=== PATIENT | female | born 1980 | race Caucasian/White ===

== ENCOUNTER → 2017-05-28 | Outpatient (CLI) | payer MEDICAID ==
[2017-05-28 13:51] LABS: BASO % 0.3 % (0.0-1.0); EOS # 0.1 10^3/uL (0.0-0.50); HEMATOCRIT 32.2 % (36.0-47.0); IMMATURE GRANULOCYTE # 0.2 10^3/uL (0-0); IMMATURE GRANULOCYTE % 1.7 % (0-3.0); LYMPH # 1.9 10^3/uL (1.5-4.5); LYMPH % 14.5 % (24.0-44.0); MEAN CORPUSCULAR HEMOGLOBIN 29.7 pg (27.0-33.0); MEAN CORPUSCULAR HGB CONC 34.2 g/dl (32.0-36.5); MONO # 0.5 10^3/uL (0.0-0.8); MONO % 3.9 % (0.0-5.0); NEUTROPHILS # 10.2 10^3/uL (1.8-7.7); NEUTROPHILS % 78.6 % (36.0-66.0); PLATELET COUNT, AUTOMATED 290 10^3/uL (150-450); RED CELL DISTRIBUTION WIDTH 13.3 % (11.5-14.5); WHITE BLOOD COUNT 12.9 10^3/uL (4.0-10.0)
[2017-05-28 14:30] LABS: AMORPHOUS SEDIMENT SMALL (NEGATIVE); APPEARANCE, URINE HAZY (CLEAR); BACTERIA, URINE AUTO 2+ (NEGATIVE); BILIRUBIN, URINE AUTO NEGATIVE (NEGATIVE); BLOOD, URINE BLOOD NEGATIVE (NEGATIVE); COLOR, URINE AMBER (YELLOW); GLUCOSE, URINE (UA) AUTO NEGATIVE (NEGATIVE); KETONE, URINE AUTO TRACE mg/dL (NEGATIVE); LEUKOCYTE ESTERASE, URINE AUTO TRACE (NEGATIVE); MUCUS, URINE SMALL (NEGATIVE); NITRITE, URINE AUTO POSITIVE (NEGATIVE); PROTEIN, URINE AUTO NEGATIVE (NEGATIVE); RBC, URINE AUTO 1 /HPF (0-3); SPECIFIC GRAVITY URINE AUTO 1.019 (1.002-1.035); SQUAMOUS EPITHELIAL CELL UR AU 1 /HPF (0-6); UROBILINOGEN, URINE AUTO 0.2 mg/dL (0.0-2.0); WBC, URINE AUTO 12 /HPF (0-3)
[2017-05-28 14:36] LABS: RUBELLA IgG QUALITATIVE IMMUNE (IMMUNE)
[2017-05-28 14:37] LABS: HEPATITIS B SURFACE ANTIGEN NEGATIVE (NEGATIVE)
[2017-05-28 15:05] LABS: HIV 1&2 SCREEN CENTAUR NEGATIVE (NEGATIVE)
== END ==
LOC: M RAD 13:25
DX: O09.522 Supervision of elderly multigravida, second trimester (principal)
CPT/HCPCS: 76811

== ENCOUNTER 2017-08-24 11:48 | Inpatient (IN) | payer MEDICAID ==
[2017-08-24] MEDS: CLINDAMYCIN 900 MG in APPROPRIATE DILUENT 1 EA IV ×2 (13:43→21:43)
[2017-08-24] MEDS: AZITHROMYCIN 250 MG TAB PO (13:44)
[2017-08-24] MEDS: BETAMETHASONE SOLUSPAN 6MG/ML INJ 5ML (J0702) IM (13:44)
[2017-08-24 13:53] LABS: HEMATOCRIT 34.9 % (36.0-47.0); MEAN CORPUSCULAR HEMOGLOBIN 28.3 pg (27.0-33.0); MEAN CORPUSCULAR HGB CONC 34.4 g/dl (32.0-36.5); MEAN CORPUSCULAR VOLUME 82.3 fl (80.0-96.0); PLATELET COUNT, AUTOMATED 278 10^3/uL (150-450); RED BLOOD COUNT 4.24 10^6/uL (4.00-5.40); RED CELL DISTRIBUTION WIDTH 14.1 % (11.5-14.5); WHITE BLOOD COUNT 14.2 10^3/uL (4.0-10.0)
[2017-08-24] MEDS: GENTAMICIN 500 MG in D5W 100 ML IV (14:53)
[2017-08-24 17:32] LABS: APPEARANCE, URINE CLEAR (CLEAR); BACTERIA, URINE AUTO 1+ (NEGATIVE); BILIRUBIN, URINE AUTO NEGATIVE (NEGATIVE); BLOOD, URINE BLOOD NEGATIVE (NEGATIVE); COLOR, URINE YELLOW (YELLOW); GLUCOSE, URINE (UA) AUTO NEGATIVE (NEGATIVE); KETONE, URINE AUTO NEGATIVE (NEGATIVE); LEUKOCYTE ESTERASE, URINE AUTO NEGATIVE (NEGATIVE); MUCUS, URINE SMALL (NEGATIVE); NITRITE, URINE AUTO NEGATIVE (NEGATIVE); PROTEIN, URINE AUTO 1+ mg/dL (NEGATIVE); RBC, URINE AUTO 0 /HPF (0-3); SQUAMOUS EPITHELIAL CELL UR AU 2 /HPF (0-6); UROBILINOGEN, URINE AUTO 0.2 mg/dL (0.0-2.0); WBC, URINE AUTO 5 /HPF (0-3)
[2017-08-24 17:43] LABS: AMPHETAMINES URINE REFLEX NEGATIVE (NEGATIVE); BARBITURATES URINE REFLEX NEGATIVE (NEGATIVE); BENZODIAZEPINES URINE REFLEX NEGATIVE (NEGATIVE); CANNABINOIDS URINE REFLEX NEGATIVE (NEGATIVE); COCAINE METABOLITE URINE REFLE NEGATIVE (NEGATIVE); METHADONE URINE REFLEX NEGATIVE (NEGATIVE); OPIATES URINE REFLEX NEGATIVE (NEGATIVE); PHENCYCLIDINE URINE REFLEX NEGATIVE (NEGATIVE)
[2017-08-25] MEDS: CLINDAMYCIN 900 MG in APPROPRIATE DILUENT 1 EA IV (05:44)
[2017-08-25] MEDS: BETAMETHASONE SOLUSPAN 6MG/ML INJ 5ML (J0702) IM (11:51)
[2017-08-25] MEDS: AZTREONAM 2 GM in D5W MINI-BAG PLUS 50 ML IV (12:16)
[2017-08-25] MEDS: LACTATED RINGER'S 1000 ML IV (12:17)
[2017-08-25] MEDS: BICITRA 30ML SOLN UDC PO (12:17)
[2017-08-25] MEDS: LR 1,000 ML IV ×4 (12:22→22:14)
[2017-08-25] MEDS ORDERED: ONDANSETRON 4MG/2ML VIAL (J2405) As Ordered (12:23)
[2017-08-25] MEDS ORDERED: OXYTOCIN INJ 10 UNITS/ML VIAL (J2590) As Ordered (12:23)
[2017-08-25] MEDS ORDERED: MORPHINE PRES-FREE INJ 10 MG/10 ML VIAL (J2274) As Ordered (12:23)
[2017-08-25] MEDS ORDERED: KETOROLAC 60 MG/2 ML VIAL (J1885) As Ordered (12:23)
[2017-08-25] MEDS ORDERED: METOCLOPRAMIDE INJ 10MG/2ML VIAL (J2765) IV ×2 (12:41→14:15)
[2017-08-25] MEDS ORDERED: NALOXONE INJ 0.4 MG/1 ML VIAL (J2310) IV ×2 (12:41)
[2017-08-25] MEDS ORDERED: ONDANSETRON 4MG/2ML VIAL (J2405) IV ×3 (12:41→14:15)
[2017-08-25] MEDS ORDERED: PHENYLephrine HCL 500 MCG/5 ML (100MCG/ML) SYRINGE (J2370) As Ordered (12:44)
[2017-08-25] MEDS ORDERED: ePHEDrine SULFATE 25 MG/5 ML(5MG/ML) SYRINGE As Ordered (12:44)
[2017-08-25 13:20] LABS: CORD GAS ABE A -5.4; CORD GAS HCO3 A 19.5 MEQ/L; CORD GAS O2 SAT A 65.9 %; CORD GAS PCO2 A 36.3 mmHg; CORD GAS PH A 7.347 UNITS; CORD GAS PO2 A 27.5 mmHg; CORD GAS SBC A 19.3 MEQ/L; CORD GAS TCO2 A 20.6 MEQ/L
[2017-08-25 13:21] LABS: CORD GAS ABE V -3.3; CORD GAS HCO3 V 23.8 MEQ/L; CORD GAS O2 SAT V 40.3 %; CORD GAS PCO2 V 50.5 mmHg; CORD GAS PH V 7.292 UNITS; CORD GAS PO2 V 21.7 mmHg; CORD GAS SBC V 20.4 MEQ/L; CORD GAS TCO2 V 25.4 MEQ/L
[2017-08-25] MEDS ORDERED: OXYTOCIN 30 UNITS IN 0.9% NaCl 500ML IV BAG (J2590) As Ordered (14:01)
[2017-08-25] MEDS ORDERED: fentaNYL 100 MCG/2 ML INJECTION (J3010) As Ordered (14:07)
[2017-08-25] MEDS ORDERED: MOM 30ML SUSPENSION UDC PO (14:15)
[2017-08-25] MEDS: OXYTOCIN DRIP 30 UNITS in APPROPRIATE DILUENT 1 EA IV (14:15)
[2017-08-25] MEDS ORDERED: PERCOCET 5MG/325MG TAB PO ×3 (14:15)
[2017-08-25] MEDS ORDERED: DOCUSATE SODIUM 100 MG CAP PO (14:15)
[2017-08-25] MEDS ORDERED: LR 1,000 ML IV (14:15)
[2017-08-25] MEDS ORDERED: fentaNYL 100 MCG/2 ML INJECTION (J3010) IV (14:15)
[2017-08-25] MEDS: NALBUPHINE HCL 10 MG/ML AMP (J2300) IV (18:54)
[2017-08-25] MEDS: KETOROLAC 30 MG/ML VIAL (J1885) IV (18:54)
[2017-08-25] MEDS: PRENATAL VITAMINS CHEWABLE TABLET PO (18:58)
[2017-08-25] MEDS: MEASLES,MUMPS,RUBELLA VACCINE INJ (MMR-II) (90707) SC (19:01)
[2017-08-25] MEDS: RHOGAM 300 MCG (1500 IU) INJ (J2790) IM (19:01)
[2017-08-26] MEDS: KETOROLAC 30 MG/ML VIAL (J1885) IV ×3 (00:48→11:57)
[2017-08-26 07:10] LABS: HEMATOCRIT 26.1 % (36.0-47.0); MEAN CORPUSCULAR HEMOGLOBIN 28.6 pg (27.0-33.0); MEAN CORPUSCULAR HGB CONC 33.7 g/dl (32.0-36.5); MEAN CORPUSCULAR VOLUME 84.7 fl (80.0-96.0); PLATELET COUNT, AUTOMATED 263 10^3/uL (150-450); RED BLOOD COUNT 3.08 10^6/uL (4.00-5.40); RED CELL DISTRIBUTION WIDTH 14.2 % (11.5-14.5); WHITE BLOOD COUNT 21.6 10^3/uL (4.0-10.0)
[2017-08-26 07:14] LABS: HEMOGLOBIN 8.8 g/dl (12.0-15.5)
[2017-08-26] MEDS: PRENATAL VITAMINS CHEWABLE TABLET PO (08:10)
[2017-08-26] MEDS: IBUPROFEN 800 MG TAB PO ×2 (14:34→23:35)
[2017-08-27] MEDS: IBUPROFEN 800 MG TAB PO (06:00)
[2017-08-27] MEDS: PRENATAL VITAMINS CHEWABLE TABLET PO (09:42)
== END 2017-08-27 10:30 | disposition home or self-care (01) | DRG 540 ==
LOC: M LDO 11:48 → M LDI 12:35 → M OBS 08-25 15:13 → M LDI 12:41
PROVIDERS: Obstetrics & Gynecology
PROC: 10D00Z1 Extraction of Products of Conception, Low, Open Approach (ICD-10-PCS; principal; 2017-08-25 12:33)
DX: O42.013 Preterm premature rupture of membranes, onset of labor within 24 hours of rupture, third trimester (principal); F19.21 Other psychoactive substance dependence, in remission; Z37.0 Single live birth; Z3A.33 33 weeks gestation of pregnancy; J45.909 Unspecified asthma, uncomplicated; O32.2XX0 Maternal care for transverse and oblique lie, not applicable or unspecified; O36.8330 Maternal care for abnormalities of the fetal heart rate or rhythm, third trimester, not applicable or unspecified; O99.52 Diseases of the respiratory system complicating childbirth

== ENCOUNTER 2018-03-02 08:56 | Day surgery (SDC) | payer MEDICAID ==
[~2018-03-02 08:56] MED LIST: LIDOCAINE 2% INJ 100 MG/5 ML SDV (FOR ANES.) As Ordered; MIDAZOLAM INJ 2 MG/2 ML VIAL (J2250) As Ordered; ONDANSETRON 4MG/2ML VIAL (J2405) As Ordered; PROPOFOL 200 MG/20 ML VIAL As Ordered; ROCURONIUM BROMIDE 50 MG/5 ML VIAL As Ordered; dexameTHASONE 4 MG/ML 1ML VIAL (J1100) As Ordered; fentaNYL 100 MCG/2 ML INJECTION (J3010) As Ordered
[2018-03-02 09:19] LABS: HEMATOCRIT 41.4 % (36.0-47.0); HEMOGLOBIN 14.2 g/dl (12.0-15.5); MEAN CORPUSCULAR HEMOGLOBIN 29.3 pg (27.0-33.0); MEAN CORPUSCULAR HGB CONC 34.3 g/dl (32.0-36.5); MEAN CORPUSCULAR VOLUME 85.4 fl (80.0-96.0); PLATELET COUNT, AUTOMATED 345 10^3/uL (150-450); RED BLOOD COUNT 4.85 10^6/uL (4.00-5.40); RED CELL DISTRIBUTION WIDTH 14.1 % (11.5-14.5); WHITE BLOOD COUNT 8.7 10^3/uL (4.0-10.0)
[2018-03-02 09:35] LABS: CONTROL LINE UCG INT CTR LINE PRESENT; URINE PREG TEST NEGATIVE (NEGATIVE)
[2018-03-02] MEDS: LR 1,000 ML IV ×2 (09:38→11:11)
[2018-03-02] MEDS: BUPIVACAINE HCL 0.25% 30 ML VIAL As Ordered (10:10)
[2018-03-02] MEDS ORDERED: SUGAMMADEX SODIUM 500 MG/5 ML VIAL (BRIDION) As Ordered (10:55)
[2018-03-02] MEDS ORDERED: KETOROLAC 60 MG/2 ML VIAL (J1885) As Ordered (10:57)
[2018-03-02] MEDS ORDERED: ONDANSETRON 4MG/2ML VIAL (J2405) IV (11:30)
[2018-03-02] MEDS ORDERED: LR 1,000 ML IV (11:30)
[2018-03-02] MEDS ORDERED: PERCOCET 5MG/325MG TAB PO (11:30)
[2018-03-02] MEDS ORDERED: fentaNYL 100 MCG/2 ML INJECTION (J3010) IV (11:30)
[2018-03-02] MEDS: PERCOCET 5MG/325MG TAB PO (11:36)
== END 2018-03-02 13:20 | disposition home or self-care (01) ==
LOC: M SDC 08:56
DX: Z30.2 Encounter for sterilization (principal); F41.9 Anxiety disorder, unspecified; F32.9 Major depressive disorder, single episode, unspecified; F31.9 Bipolar disorder, unspecified; E66.9 Obesity, unspecified; Z68.38 Body mass index [BMI] 38.0-38.9, adult; Z88.0 Allergy status to penicillin; Z72.0 Tobacco use; Z87.81 Personal history of (healed) traumatic fracture
CPT/HCPCS: 58661

== ENCOUNTER 2018-11-11 17:27 | Emergency (ER) | payer MEDICAID ==
[~2018-11-11] VITALS: Ht 154.9 cm; Wt 92.2 kg
[2018-11-11 17:27] VITALS: BP 137/94
[~2018-11-11 17:27] MED LIST changes: +COLA100C5 PO; +FLUO20CA19 PO; +IBUP1TAB7 PO; -LIDOCAINE 2% INJ 100 MG/5 ML SDV (FOR ANES.) As Ordered; -MIDAZOLAM INJ 2 MG/2 ML VIAL (J2250) As Ordered; +MINI1CAP PO; -ONDANSETRON 4MG/2ML VIAL (J2405) As Ordered; +OXYC1TAB23 PO; +PERC5TAB12 PO; +PRENTAB9 PO; -PROPOFOL 200 MG/20 ML VIAL As Ordered; +QUET5TAB PO; -ROCURONIUM BROMIDE 50 MG/5 ML VIAL As Ordered; +TRAZ1TAB10 PO; -dexameTHASONE 4 MG/ML 1ML VIAL (J1100) As Ordered; -fentaNYL 100 MCG/2 ML INJECTION (J3010) As Ordered
[2018-11-11] MEDS ORDERED: IBUP-1022 PO (18:21)
--- NOTE | 2018-11-11 18:26 | REP ---
Right forearm: Two views. History: Pain with movement. Findings: AP and lateral views of the right forearm show mild spurring of the lateral epicondyle which may lateral epicondylitis. Bones, joints, and soft tissues are otherwise radiographically unremarkable. Electronically Signed by Jan Chang MD 11/11/2018 06:17 P
[2018-11-11] MEDS ORDERED: IBUPROFEN 600 MG TAB PO ONE (18:30)
== END 2018-11-11 18:25 | disposition home or self-care (01) ==
LOC: M ED 17:27
DX: M77.11 Lateral epicondylitis, right elbow (principal); Z72.0 Tobacco use; Z88.0 Allergy status to penicillin